=== PATIENT | male | born 1965 | race Caucasian/White ===

== ENCOUNTER 2020-02-16 03:28 | Observation (INO) | payer OTHER ==
[~2020-02-16] VITALS: Ht 172.7 cm; Wt 97.7 kg
[2020-02-16] MEDS ORDERED: COZAAR25 MG PO (03:42)
[2020-02-16] MEDS ORDERED: OMEPRAZOLE20 M1 PO (03:43)
--- NOTE | 2020-02-16 03:45 | NUR ---
TRAUMA BAND [id number]
--- NOTE | 2020-02-16 04:00 | NUR ---
PT TO RADIOLOGY VIA WHEELCHAIR AT THIS TIME.
[2020-02-16 04:04] LABS: HEMATOCRIT 47.9 % (42.0-54.0); HEMOGLOBIN 16.3 g/dL (13.5-17.5); MCH 29.4 pg (26.0-34.0); MCV 86.3 fL (80.0-100.0); MEAN PLATELET VOLUME 10.2 fL (7.4-10.4); PLATELET COUNT 270 10x3/uL (130-400); RBC 5.55 10x6/uL (4.20-6.10); RDW 12.9 % (11.5-14.5); WBC 23.7 10x3/uL (4.8-10.8)
[2020-02-16 04:15] LABS: ANION GAP 15.7 mmol/L (8-16); CALCIUM 8.9 mg/dL (8.5-10.1); CARBON DIOXIDE 23.5 mmol/L (21.0-32.0); CREATININE - SERUM 1.1 mg/dL (0.6-1.3); POTASSIUM - SERUM 3.2 mmol/L (3.5-5.1)
--- NOTE | 2020-02-16 04:25 | NUR ---
PT BACK FROM ORDERED CT SCAN AT THIS TIME.
[2020-02-16 04:27] LABS: EOSINOPHILS 1 % (0-7); LYMPHOCYTES 11 % (15-50); MONOCYTES 5 % (2-11); NEUTROPHILS 76 % (40-80); PLATELET ESTIMATE NORMAL
[2020-02-16 04:30] LABS: ALBUMIN 4.3 g/dL (3.4-5.0); BILIRUBIN - TOTAL 0.52 mg/dL (0.2-1.3); PROTEIN - SERUM 7.8 g/dL (6.4-8.2)
--- NOTE | 2020-02-16 05:13 | NUR ---
URINE SENT TO LAB.
[2020-02-16 05:23] LABS: SPECIFIC GRAVITY 1.015 (1.005-1.020)
[2020-02-16 05:24] LABS: BILIRUBIN NEGATIVE (NEGATIVE); GLUCOSE NEGATIVE (NEGATIVE); KETONE NEGATIVE (NEGATIVE); NITRITE NEGATIVE (NEGATIVE); RED CELLS - URINE >50 /hpf (0-5); UROBILINOGEN NORMAL (NORMAL)
[2020-02-16] MEDS ORDERED: HYDROCODONE-IB1 EAC3 PO (06:09)
--- NOTE | 2020-02-16 09:09 | NUR ---
ARRIED TO UNIT WITH SL IN PLACE, NEWSPERSON STARTED, EYES CLOSED
[2020-02-16 09:41] VITALS: BP 169/99
[2020-02-16 11:35] VITALS: BP 142/96; BMI 32.7
[2020-02-16 13:11] VITALS: BP 181/111
--- NOTE | 2020-02-16 13:22 | NUR ---
CLONIDINE GIVEN FOR ELEVATED BP, CONT TO MONITOR PAIN AND VITALS
[2020-02-16 17:05] VITALS: BP 152/112
[2020-02-16 20:15] VITALS: BP 129/90
[2020-02-16 20:49] VITALS: Ht 172.7 cm; Wt 97.7 kg
--- NOTE | 2020-02-16 22:29 | NUR ---
AWAKE,ALERT. NO COMPLAITNS VOICED. RESP EVEN AND UNALBORED.DIRECTOR OF SCOUT WORK DILAUDID IN USE FOR PAIN CONTROL. IV TO LFA INTACT WITHOUT REDNESS OR EDEMA NOTED. CL IN REACH
[2020-02-17 01:11] VITALS: BP 131/84
--- NOTE | 2020-02-17 03:44 | NUR ---
I have reviewed this patient and I concur with the Shift Assessment completed by the Licensed Practical Nurse today this shift.
[2020-02-17 04:35] VITALS: BP 141/91
[2020-02-17 06:51] LABS: BASOPHILS 0.1 % (0-2); EOSINOPHILS 0.2 % (0-7); HEMATOCRIT 42.2 % (42.0-54.0); HEMOGLOBIN 13.7 g/dL (13.5-17.5); IMMATURE GRANULOCYTES 0.3 % (0-5); LYMPHOCYTES 13.5 % (15-50); MCH 28.5 pg (26.0-34.0); MCHC 32.5 g/dL (31.0-37.0); MCV 87.9 fL (80.0-100.0); MEAN PLATELET VOLUME 10.9 fL (7.4-10.4); NEUTROPHILS 75.9 % (40-80); RDW 13.2 % (11.5-14.5)
[2020-02-17 06:54] LABS: PLATELET COUNT 214 10x3/uL (130-400); WBC 10.4 10x3/uL (4.8-10.8)
[2020-02-17 07:40] LABS: ALBUMIN 3.3 g/dL (3.4-5.0); ALKALINE PHOSPHATASE 49 U/L (30-120); ALT (SGPT) 499 U/L (10-68); BILIRUBIN - TOTAL 1.14 mg/dL (0.2-1.3); CALC OSMOLALITY 272 mosm/kg (275-300); CARBON DIOXIDE 26.8 mmol/L (21.0-32.0); CHLORIDE - SERUM 102 mmol/L (98-107); CREATINE KINASE 5479 UL (21-232); CREATININE - SERUM 0.8 mg/dL (0.6-1.3); GLUCOSE 120 mg/dL (74-106); MAGNESIUM - SERUM 2.3 mg/dL (1.8-2.4); PHOSPHOROUS 2.2 mg/dL (2.5-4.9); POTASSIUM - SERUM 4.2 mmol/L (3.5-5.1); PROTEIN - SERUM 6.5 g/dL (6.4-8.2); SODIUM 134 mmol/L (136-145); TROPONIN-I < 0.017 ng/mL (0.000-0.060); UREA NITROGEN 23 mg/dL (7-18); eGFR NON AFRICAN AMERICAN > 90 mL/min (90-120)
[2020-02-17 07:41] LABS: CKMB 69.2 U/L (0.0-3.6)
[2020-02-17 08:30] VITALS: BP 129/90
--- NOTE | 2020-02-17 10:07 | NUR ---
RESTING IN BED, NO DISTRESS NOTED, [employer] TECHNICIAN CONT, PAIN BETTER, CONT TO MONITOR
[2020-02-17] MEDS ORDERED: HYDROCODON-ACE1 EAC7 PO (12:11)
[2020-02-17] MEDS ORDERED: COLACE100 MG PO (12:11)
--- NOTE | 2020-02-17 13:15 | NUR ---
IV REMOVED, TIP INTACT, REVIEWED DC ORDERS, PROVIDED RX, TAKEN FROM HOSPITAL PER W/C
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
== END 2020-02-17 13:30 | disposition home or self-care (01) ==
LOC: D.ER 03:28 → D.MS 06:34 → OBSVTIME 06:34 → D.MS 02-17 13:30
PROVIDERS: Emergency Medicine; ADMIT Surgery; ATTEND Surgery
DX: S22.41XA Multiple fractures of ribs, right side, initial encounter for closed fracture (principal); V86.99XA Unspecified occupant of other special all-terrain or other off-road motor vehicle injured in nontraffic accident, initial encounter; R79.89 Other specified abnormal findings of blood chemistry; S50.02XA Contusion of left elbow, initial encounter; S80.11XA Contusion of right lower leg, initial encounter; K21.9 Gastro-esophageal reflux disease without esophagitis; I10 Essential (primary) hypertension